=== PATIENT | female | born 1940 | race Caucasian/White ===

== ENCOUNTER 2022-02-17 14:02 | Emergency (ER) | payer MEDICARE, SELFPAY ==
--- NOTE | 2022-02-17 14:12 | CT_ITS ---
WS: [id number] CT HEAD NONCONTRAST HISTORY: stroke like symptoms TECHNIQUE: Contiguous axial imaging performed through the brain in 2.5 mm imaging. Bone and soft tiss ue windows. Sagittal and coronal reformats reviewed. All CT scans at [facility] use at least one of these dose optimization techniques: automated exposure control; mA and/or kV adjustment per pa tient size (includes targeted exams where dose is matched to clinical indication); or iterative recon struction. DLP: 808.39 mGy.cm COMPARISON: 09/15/2019 No acute intracranial hemorrhage, midline shift or mass effect. Mild atrophy and small vessel ischemic disease. There are several small lacunar infarcts in the LEFT basal ganglia. Additional small lacunar infarct in the RIGHT sarkis. Prominent perivascular space infe rior RIGHT basal ganglia. Ventricles: Mild ventriculomegaly on the basis of atrophy. Paranasal sinuses: As visualized are clear. 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 Calvarium and scalp: Skull is intact with no soft tissue edema or swelling. Moderate calcified plaque within the intracranial carotid arteries. CT/CT head wo con* [id number] IMPRESSION: 1. No acute intracranial hemorrhage or edema. 2. Small vessel ischemic disease and bilateral lacunar infarcts are stable. St able RIGHT sarkis infarct.
[2022-02-17 14:15] VITALS: BP 111/67; PULSE 81; RESP 15; TEMP 36.6; O2SAT 98
--- NOTE | 2022-02-17 14:29 | W.ED.FALL ---
HPI - Fall General: Chief Complaint: Fall Stated Complaint: Cant move legs,Pt daughter staes possible stroke Time Seen by Provider: 02/17/22 14:29 History of Present Illness: Ms. Lawson is an 81-year-old lady with history of stroke without reported residual deficits who presents to the emergency department due to difficulty walking and strokelike symptoms. She is accompanied by daughter who provide supplemental history. The patient herself does not specifically recall events and apparently over the past 6 months has had cognitive decline. Patient had 2 falls yesterday from standing while walking, unclear if there was any prodromal symptoms however daughter witnessed these falls and denies patient tripping. She reported difficulty using her legs at that time and difficulty walking afterwards. Additionally she had 1 more fall today and had been dragging her left lower extremity. In further discussion the patient did have a large stroke resulting in left sided weakness that required multiple months of inpatient rehab. She has occasionally had left lower extremity weakness in the past. Intensity symptoms is moderate. Course has persisted. No other specific changes in health, exacerbating, or alleviating factors identified. Onset (ago): day(s) Fall from: standing Fall witnessed: yes, by family Place fall occurred: home Review of Systems General: Reports: 10 or more systems reviewed and unremarkable except in HPI and below (Assisted by family) PFSH ED PFSH: Medical History Dementia Stroke Surgical History No significant past surgical history Social History Smoking and tobacco status: never smoked Household members: family Physical Exam Const: COMMON NORMALS: patient oriented x3 and alert GENERAL APPEARANCE: cooperative and well developed HENMT: COMMON NORMALS: normocephalic and atraumatic HEAD & SCALP: normocephalic and atraumatic THROAT: posterior oropharynx normal Eye: COMMON NORMALS: conjunctivae normal CONJUNCTIVA: Yes conjunctivae normal SCLERA: sclerae normal Neck/C-Spine: COMMON NORMALS: supple GENERAL: Yes trachea midline Resp: COMMON NORMALS: clear to auscultation bilaterally EFFORT & INSPECTION: Yes able to speak in complete sentences AUSCULTATION: clear to auscultation bilaterally Cardio: COMMON NORMALS: regular rate and regular rhythm RATE: regular rate RHYTHM: regular rhythm GI: COMMON NORMALS: Soft to palpation PALPATION: Yes Soft to palpation and No Tenderness to palpation present (GI) PERCUSSION: normal to percussion Extremity: GENERAL: Yes normal exam except as noted and No edema Neuro: COMMON NORMALS: patient oriented x3, CN's II-XII intact bilaterally, moves all extremities, no focal motor deficits and no sensory deficits noted SENSORIUM/ORIENTATION: Yes alert and No Orientation impaired Psych: COMMON NORMALS: mental status grossly normal and Normal thought process present THOUGHT PROCESS: Normal thought process present Course ED course: - Patient was seen and evaluated by me at bedside - Patient placed on cardiac monitors, IV access obtained - Initial evaluation notable for exam as above, no neurologic evidence appreciated. - Labs personally interpreted by me. EKGs from 1438 and 1648 reviewed and personally interpreted by me. Sinus rhythm. No STEMI. - Labs notable for no hematologic or metabolic abnormalities to explain symptoms. Urinalysis with questionable evidence of urinary tract infection. - Imaging notable for no evidence of acute stroke on head CT. No evidence of traumatic injury and cervical spine CT. Lumbar spine with degenerative changes which is worse on the left and a partial explain some of patient symptoms and clinical history is not concerning for emergent process requiring surgical intervention. - Upon serial reexamination after treatment the patient was mildly proved - Based on patient history, evaluation, and testing as interpreted the most likely cause of the patient's condition is unclear, perhaps TIA versus recrudescence in the context of mild urinary tract infection. Patient on asa, plavix, and statin for prevention. - The results of ED evaluation were discussed with the patient including possible disposition options. I discussed prescriptions and/or symptomatic cares (if applicable) including appropriate and responsible use, followup plan, and return precautions. The patient verbalized understanding and felt safe for discharge. - Patient discharged in satisfactory condition. Note: Click bubbles or prepopulated hidalgo in note writing are used for assistance with data collection and billing and are inherently more limited than narrative and other text portions of this note. Please use narrative for additional clinical history and defer to narrative/free test for any case of contradictory information. If information appears in only free text or click bubble it should be considered present or absent as reported. Please contact note telegraphic typewriter operator for clarifications of clinical information or contradictory information. MDM is a brief summary, contradictory or erroneous seeming information should be clarified and full note should be reviewed. Vital Signs: Vital signs: Vital Signs Temperature 97.8 F 02/17/22 14:15 Pulse Rate 77 02/17/22 19:24 Respiratory Rate 18 02/17/22 19:24 Blood Pressure 161/89 02/17/22 19:24 Pulse Oximetry 98 02/17/22 19:24 MDM - Fall Medical Decision Making 81 yo presenting with falls and questionable stroke like symptoms which have improved. NIHSS 0 on exam. No evidence of acute stroke. Will treat for UTI given possibility of recrudescence. Satisfactory for outpatient management with continuing aspirin, Plavix and statin. Refer to Dr De Los Santos for abnormal CT findings on L spine. Medical Records I reviewed the patient's medical records. Lab Data I reviewed the patient's lab results. : 02/17/22 14:41 02/17/22 14:[address] 02/17/22 14:12 IMPRESSION: 1. No acute intracranial hemorrhage or edema. 2. Small vessel ischemic disease and bilateral lacunar infarcts are stable. Stable RIGHT sarkis infarct. Cervical Spine CT 02/17/22 14:59 IMPRESSION: 1. No acute cervical spine fracture. 2. Mild cervical spondylosis, most significant at C4-5 and C5-6. Lumbar Spine CT 02/17/22 14:59 IMPRESSION: 1. No acute lumbar spine fracture. 2. LEFT foraminal disc protrusion without contact on the nerve root at L3-4. 3. Mild disc contacting the traversing LEFT L5 nerve root. Mild narrowing of the LEFT foramen and lateral recess at L4-5. 4. Minimal disc contact of the LEFT S1 nerve root but no displacement. Laboratory Results WBC 5.4 10^3/uL (4.0-10.0) 02/17/22 14:41 RBC 4.02 10^6/uL (4.1-5.3) L 02/17/22 14:41 Hgb 12.0 g/dL (11.5-15.3) 02/17/22 14:41 Hct 38.1 % (37.0-47.0) 02/17/22 14:41 MCV 94.8 fl (81-99) 02/17/22 14:41 MCH 29.9 pg (28.0-34.0) 02/17/22 14:41 MCHC 31.5 g/dL (30.0-36.0) 02/17/22 14:41 RDW 13.1 % (12.1-15.1) 02/17/22 14:41 Plt Count 275 10^3/cmm (130-400) 02/17/22 14:41 MPV 9.6 fL (7.4-10.4) 02/17/22 14:41 Neut % (Auto) 68.2 % 02/17/22 14:41 Lymph % (Auto) 21.3 % 02/17/22 14:41 Whitman % (Auto) 7.0 % 02/17/22 14:41 Eos % (Auto) 1.8 % 02/17/22 14:41 Baso % (Auto) 1.3 % 02/17/22 14:41 Neut # (Auto) 3.71 10^3/uL (1.8-7.7) 02/17/22 14:41 Lymph # (Auto) 1.2 10^3/uL (0.8-4.8) 02/17/22 14:41 Whitman # (Auto) 0.4 10^3/uL (0.2-0.9) 02/17/22 14:41 Eos # (Auto) 0.1 10^3/uL (0.0-0.8) 02/17/22 14:41 Baso # (Auto) 0.1 10^3/uL (0.0-0.1) 02/17/22 14:41 Nucleated RBC % (auto) 0 % 02/17/22 14:41 Nucleated RBCs # 0.0 /100WBC 02/17/22 14:41 Sodium 137 mmol/L (136-145) 02/17/22 14:41 Potassium 3.7 mmol/L (3.5-5.1) 02/17/22 14:41 Chloride 100 mmol/L (98-107) 02/17/22 14:41 Carbon Dioxide 28 mmol/L (22-29) 02/17/22 14:41 Anion Gap 12.7 (5-19) 02/17/22 14:41 BUN 17 mg/dL (8-23) 02/17/22 14:41 Creatinine 0.8 mg/dL (0.5-0.9) 02/17/22 14:41 GFR Calculation Not Reportable 02/17/22 14:41 Glucose 107 mg/dL (65-115) 02/17/22 14:41 POC Glucose 107 mg/dL (70-110) 02/17/22 14:39 Calculated Osmolality 286 mOsm/kg (285-295) 02/17/22 14:41 Calcium 9.2 mg/dL (8.5-10.5) 02/17/22 14:41 Total Bilirubin 0.2 mg/dL (0.15-1.2) 02/17/22 14:41 AST 24 U/L (0-32) 02/17/22 14:41 ALT 20 U/L (0-33) 02/17/22 14:41 Alkaline Phosphatase 69 IU/L (35-105) 02/17/22 14:41 Troponin T Baseline 10 ng/L (0-10) 02/17/22 14:41 Troponin T 120 Minute 8.14 ng/L (0-10) 02/17/22 17:16 Delta Troponin T -1.86 ABS# (0-10) L 02/17/22 17:16 NT-Pro-B Natriuret Pep 347 pg/mL (0-450) 02/17/22 14:41 Total Protein 6.8 g/dL (6.6-8.7) 02/17/22 14:41 Albumin 4.2 g/dL (3.5-5.2) 02/17/22 14:41 Globulin 2.6 g/dL (1.3-4.6) 02/17/22 14:41 TSH 1.52 uIU/mL (0.27-4.20) 02/17/22 14:41 Urine Color Yellow (Yellow) 02/17/22 15:50 Urine Appearance Clear (CLEAR) 02/17/22 15:50 Urine pH 6.5 (5-7) 02/17/22 15:50 Ur Specific Lamar 1.015 (1.005-1.030) 02/17/22 15:50 Urine Protein Neg (Negative) 02/17/22 15:50 Urine Glucose (UA) Norm (Normal) 02/17/22 15:50 Urine Ketones Negative (Negative) 02/17/22 15:50 Urine Blood Neg (Negative) 02/17/22 15:50 Urine Nitrate Negative (Negative) 02/17/22 15:50 Urine Bilirubin Neg (Negative) 02/17/22 15:50 Urine Urobilinogen Norm mg/dL (Negative) 02/17/22 15:50 Ur Leukocyte Esterase Trace (Negative) H 02/17/22 15:50 Urine RBC None /hpf (0-2) 02/17/22 15:50 Urine WBC 5-10 /hpf (0-5) H 02/17/22 15:50 Ur Squamous Epith Cells 0-4 /hpf (0-5) H 02/17/22 15:50 Amorphous Sediment 1+ /hpf 02/17/22 15:50 Urine Bacteria 1+ /hpf (NONE) H 02/17/22 15:50 Discharge Plan Discharge Patient Disposition: Home Clinical Impression: Falls, Acute UTI Condition: Stable Prescriptions: New cephalexin 500 mg capsule 500 mg PO Q6H 10 Days Qty: 40 0RF No Action atorvastatin 40 mg tablet 40 mg PO DAILY 0RF sertraline 100 mg tablet 100 mg PO DAILY 0RF clopidogrel 75 mg tablet 75 mg PO DAILY 0RF alprazolam 0.25 mg tablet 0.25 mg PO TID PRN (Reason: Anxiety) 0RF buspirone 10 mg tablet 10 mg PO TID PRN (Reason: Anxiety) 0RF aspirin 81 mg Tablet,Chewable 162 mg PO DAILY 0RF fluticasone propionate 50 mcg/actuation spray,suspension 1 spray INTRANASAL DAILY PRN (Reason: Nasal Congestion) 0RF cholecalciferol (vitamin D3) 1,250 mcg (50,000 unit) capsule 1,250 mcg PO Q7D 0RF Discharge Orders: Discharge ED (Routine); Ordered 02/17/22 Ordered By: Samy Sheriff Discharge Diet: Usual diet Discharge Activity: Resume usual activity Patient Instructions: Fall Prevention for Older Adults (ED), Urinary Tract Infection in Older Adults (ED) Activity Restrictions/Additional Instructions: Thank you for visiting the emergency department. You were seen and evaluated for falls. The exact cause of your symptoms is unclear. You were found to have a small amount of white blood cells and bacteria in your urine which will be treated with antibiotics. Please ensure that you follow-up with your scheduled neurology appointment. Please follow-up with your primary care provider. I will message case management regarding possible follow-up with Dr. De Los Santos of orthopedic spine regarding your lumbar CT results. Please return to the emergency department for worsening symptoms, recurrent falls, any new focal neurologic symptoms, or anything else that you are concerned about and feel needs emergency department evaluation. 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
--- NOTE | 2022-02-17 14:30 | ECG_ITS ---
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 Measurements Intervals [place] Rate: 74 P: 47 [place]: 145 QRS: 61 QRSD: 86 T: 75 QT: 408 QTc: 454 Interpretive Statements SINUS RHYTHM MINIMAL ST DEPRESSION [0.025+ mV ST DEPRESSION] Compared to ECG 09/15/2019 15:35:00 ST (T wave) deviation now present T-wave abnormality no longer present Electronically Signed On 02-17-2022 17:09:18 CDT by Wilfredo Menendez M.D. [email or web address] [email or web address] [email or web address] [id number]
[2022-02-17 14:35] VITALS: BP 122/75; PULSE 77; RESP 18; O2SAT 96
[2022-02-17 14:42] LABS: Glucose Point of Care 107 mg/dL (70-110)
[2022-02-17 14:53] LABS: Basophils # 0.1 10^3/uL (0.0-0.1); Basophils % 1.3 %; Eosinophils # 0.1 10^3/uL (0.0-0.8); Eosinophils % 1.8 %; Hematocrit 38.1 % (37.0-47.0); Lymphocytes # 1.2 10^3/uL (0.8-4.8); Lymphocytes % 21.3 %; Mean Corpuscular HGB Conc 31.5 g/dL (30.0-36.0); Mean Corpuscular Hemoglobin 29.9 pg (28.0-34.0); Mean Corpuscular Volume 94.8 fl (81-99); Mean Platelet Volume 9.6 fL (7.4-10.4); Monocytes # 0.4 10^3/uL (0.2-0.9); Neutrophils # 3.71 10^3/uL (1.8-7.7); Neutrophils % 68.2 %; Nucleated Red Blood Cells % 0 %; Platelet Count 275 10^3/cmm (130-400); Red Blood Count 4.02 10^6/uL (4.1-5.3); Red Cell Distribution Width 13.1 % (12.1-15.1); White Blood Count 5.4 10^3/uL (4.0-10.0)
--- NOTE | 2022-02-17 14:59 | CT_ITS ---
WS: [id number] CT CERVICAL SPINE HISTORY: fall TECHNIQUE: Contiguous 2.5 mm axial imaging performed through the entire cervical spine. Sagittal and coronal reformats also performed. All CT scans at [facility] use at least one of these dose o ptimization techniques: automated exposure control; mA and/or kV adjustment per patient size (include s targeted exams where dose is matched to clinical indication); or iterative reconstruction. DLP: 290.25 mGy.cm COMPARISON: None available. Normal posterior cervical alignment. Mild disc space narrowing and desiccation at C4-5 and C5-C6. No fractures. Craniocervical junction is aligned. Lateral masses are aligned odontoid is intact. C2-C3: Moderate RIGHT facet joint arthritis. C3-C4: Normal. C4-C5: Osteophytic ridging and facet joint arthritis. No high-grade stenosis. C5-C6: Osteophytic ridging with no high-grade stenosis. C6-C7: Normal. C7-T1: Normal. Soft tissues are normal. Lung apices are clear. CT/CT cervical spin wo con* [id number] IMPRESSION: 1. No acute cervical spine fracture. 2. Mild cervical spondylosis, most significant at C4-5 and C5-6.
--- NOTE | 2022-02-17 14:59 | CT_ITS ---
WS: [id number] CT LUMBAR SPINE, noncontrast. HISTORY: fall, pain, lower extremity weakness TECHNIQUE: Contiguous 2.5 mm axial imaging are performed. Sagittal and coronal reformats are submitte d and reviewed. All CT scans at [facility] use at least one of these dose optimization techni ques: automated exposure control; mA and/or kV adjustment per patient size (includes targeted exams w here dose is matched to clinical indication); or iterative reconstruction. IV contrast: None DLP: 1496.8 mGy.cm COMPARISON: None available. Posterior lumbar alignment is normal. No acute fracture is identified. Moderate disc space narrowing at L4-5. Mild RIGHT curvature the lumbar spine. Vacuum disc phenomenon at L2-3 and L4-5. L1-2: Mild asymmetric disc bulging. No stenosis. L2-3: Mild diffuse disc bulging with a shallow LEFT paracentral disc protrusion. No stenosis. L3-4: Mild diffuse annular disc bulging. There is a LEFT foraminal disc protrusion which is broad-bas ed without significant stenosis or nerve root contact. L4-5: Mild disc bulging. Mild osteophytic ridging. The disc slightly contacts the traversing LEFT L5 nerve root in the lateral recess. Very mild narrowing of the LEFT foramen. L5-S1: Osteophytic ridging with very slight disc contact on the LEFT S1 nerve root but no displacemen t. There are small bilateral osteophytes extending into the foramen bilaterally. Moderate calcification within the abdominal aorta. Small amount of air in the SI joints. CT/CT lumbar spine wo con* [id number] IMPRESSION: 1. No acute lumbar spine fracture. 2. LEFT foraminal disc protrusion without contact on the nerve root at L3-4. 3. Mild disc contacting the traversing LEFT L5 nerve root. Mild narrowing of t he LEFT foramen and lateral recess at L4-5. 4. Minimal disc contact of the LEFT S1 nerve root but no displacement.
[2022-02-17 15:37] LABS: Troponin(5th) Baseline 10 ng/L (0-10)
[2022-02-17 15:42] LABS: Alanine Aminotransferase 20 U/L (0-33); Albumin Level 4.2 g/dL (3.5-5.2); Alkaline Phosphatase 69 IU/L (35-105); Anion Gap 12.7 (5-19); Aspartate Amino Transferase 24 U/L (0-32); Blood Urea Nitrogen 17 mg/dL (8-23); Calcium 9.2 mg/dL (8.5-10.5); Carbon Dioxide 28 mmol/L (22-29); Chloride 100 mmol/L (98-107); Globulin 2.6 g/dL (1.3-4.6); Glucose 107 mg/dL (65-115); NT Pro B Type Natriuretic Pept 347 pg/mL (0-450); Osmolality Calculated 286 mOsm/kg (285-295); Potassium 3.7 mmol/L (3.5-5.1); Sodium 137 mmol/L (136-145); Thyroid Stimulating Hormone 1.52 uIU/mL (0.27-4.20); Total Bilirubin 0.2 mg/dL (0.15-1.2); Total Protein 6.8 g/dL (6.6-8.7)
[2022-02-17 15:52] VITALS: BP 145/79; PULSE 71; RESP 13; O2SAT 99
[2022-02-17 16:08] LABS: Add Urine Microscopic? YES; Bilirubin Urine Neg (Negative); Blood Urine Neg (Negative); Glucose Urine UA Norm (Normal); Ketones Urine Negative (Negative); Leukocyte Esterase Urine Trace (Negative); Nitrate Urine Negative (Negative); Protein Urine Neg (Negative); Specific Gravity, Urine 1.015 (1.005-1.030); Urine Appearance Clear (CLEAR); Urine Color Yellow (Yellow); Urobilinogen Urine Norm (Negative); pH Urine 6.5 (5-7)
[2022-02-17 16:09] LABS: Add Urine Culture? No; Amorphous Sediment Urine 1+ /hpf; Bacteria Urine 1+ /hpf; Squamous Epithelial Cell Urine 0-4 /hpf (0-5)
[2022-02-17 16:28] VITALS: BP 156/112; PULSE 70; RESP 17; O2SAT 97
--- NOTE | 2022-02-17 16:30 | ECG_ITS ---
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 Measurements Intervals [place] Rate: 69 P: 57 [place]: 150 QRS: 72 QRSD: 86 T: 74 QT: 428 QTc: 460 Interpretive Statements SINUS RHYTHM MINIMAL ST DEPRESSION [0.025+ mV ST DEPRESSION] Compared to ECG 02/17/2022 14:38:08 No significant changes Electronically Signed On 02-17-2022 17:19:48 CDT by Wilfredo Menendez M.D. [id number]
[2022-02-17 17:34] VITALS: BP 160/111; PULSE 71; RESP 13; O2SAT 98
[2022-02-17 17:48] LABS: Troponin 5 2HR 8.14 ng/L (0-10); Troponin 5 2HR Delta -1.86 ABS# (0-10)
[2022-02-17 19:24] VITALS: BP 161/89; PULSE 77; RESP 18; O2SAT 98
--- NOTE | 2022-02-18 12:25 | DCPLANNER ---
Addendum entered by Delia Zavala 03/31/22 20:11: Patient had a follow up appointment scheduled with ortho - patient did not attend appointment. Addendum entered by Delia Zavala 02/23/22 09:39: Patient has a follow up appointment scheduled for Wednesday, March 09, 2022 at 10:[address] De Los Santos at ortho. Clinic will call patient with appointment information. Original Note: franchise development manager had message to schedule a follow up appointment for patient with ortho. franchise development manager sent patients information to the front staff at ortho thru the workload message system. Patients information will be printed and reviewed. Clinic will call patient with appointment information.
== END 2022-02-17 19:26 | disposition home or self-care (01) ==
PROVIDERS: Emergency Provider Emergency Medicine
DX: N39.0 Urinary tract infection, site not specified (principal); R29.6 Repeated falls; F03.90 Unspecified dementia, unspecified severity, without behavioral disturbance, psychotic disturbance, mood disturbance, and anxiety; Z86.73 Personal history of transient ischemic attack (TIA), and cerebral infarction without residual deficits
CPT/HCPCS: 36416; 70450; 72125; 72131; 80053; 81001; 82962; 83880; 84443; 84484; 85025; 93005; 99284

== ENCOUNTER 2022-03-25 16:16 | Emergency (ER) | payer MEDICARE, SELFPAY ==
[2022-03-25 16:31] VITALS: BP 160/80; PULSE 83; RESP 16; TEMP 36.7; O2SAT 99
--- NOTE | 2022-03-25 17:09 | XRR_ITS ---
PROCEDURE INFORMATION: Exam: XR Right Shoulder Exam date and time: 03/25/2022 5:30 PM Age: 81 years old Clinical indication: Pain; Shoulder; Right; Additional info: Fall injury TECHNIQUE: Imaging protocol: XR Right shoulder. Views: 2 or more views. COMPARISON: CT cervical spin wo con* [id number] 02/17/2022 3:09 PM FINDINGS: Bones/joints: Normal. Soft tissues: Normal. XR/XR shoulder RT min 2V* [id number] IMPRESSION: No acute findings.
--- NOTE | 2022-03-25 17:10 | W.ED.FALL ---
HPI - Fall General: Chief Complaint: Fall Stated Complaint: Right should pain from fall Time Seen by Provider: 03/25/22 17:09 History of Present Illness: 81-year-old female with dementia comes in today for evaluation of injury to the right shoulder. Patient had fallen on Tuesday evening. Patient has a history of dementia, CVA, and hypertension. Patient mainly takes medications for her dementia and cholesterol. 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 Patient is cooperative and pleasant at this time. Patient has a significant bruise to the right upper arm. Patient moves arm but is guarded with movement. Associated symptoms-after fall: Denies chest pain Review of Systems General: Reports: 10 or more systems reviewed and unremarkable except in HPI and below Card: Denies: chest pain Resp: Denies: dyspnea Musc: Reports: extremity pain [facility] ED PFSH: Medical History Dementia Stroke Surgical History No significant past surgical history Social History Smoking and tobacco status: never smoked Household members: family Physical Exam Const: COMMON NORMALS: alert HENMT: COMMON NORMALS: atraumatic HEAD & SCALP: atraumatic Neck/C-Spine: COMMON NORMALS: full ROM Chest: COMMONS NORMALS: normal palpation of entire chest wall Resp: COMMON NORMALS: normal respiratory effort Cardio: COMMON NORMALS: regular rate RATE: regular rate Back/Pelvis: COMMON NORMALS: thoracic and lumbar spine normal to inspection Extremity: NARRATIVE EXTREMITY EXAM: Patient is ambulatory with unsteady normal gait. Patient has a history of CVA with some weakness to the left extremity RIGHT UPPER EXTREMITY: Yes upper arm (Large ecchymotic area, tenderness to the upper arm) Neuro: SENSORIUM/ORIENTATION: Yes alert Skin: COMMON NORMALS: no rashes or lesions noted GENERAL SKIN EXAM: no rashes or lesions noted Course Vital Signs: Vital signs: Vital Signs Temperature 98.1 F 03/25/22 16:31 Pulse Rate 83 03/25/22 16:31 Respiratory Rate 16 03/25/22 16:31 Blood Pressure 160/80 03/25/22 16:31 Pulse Oximetry 99 03/25/22 16:31 MDM - Fall Medical Decision Making 81-year-old female was brought in today due to concerns of significant bruising and tenderness to the right upper arm. 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 Since then patient had some bruising and tenderness to the right upper arm. On exam patient has some mild dementia. Patient uses a walker. Patient has some general weakness in the lower extremities. On exam patient is cooperative and responds appropriate to questions. Daughter reports that she gets worse at night. Vital signs are normal. Tenderness and significant bruising is noted to the right upper arm. Differential diagnosis includes humeral fracture, intracranial bleeding, pelvic fracture. X-ray of the pelvis was negative for fracture or injury. X-ray of the shoulder was negative for fracture or dislocation. CT of the head noted no intracranial bleeding. Reviewed exam with patient's family and patient who reported understanding of care plan to use Tylenol as needed for pain and return to the ER for any new concerns. Lab Data Radiology Impressions Shoulder X-Ray 03/25/22 17:09 IMPRESSION: No acute findings. Head CT 03/25/22 17:21 IMPRESSION: Negative for intracranial injury. Pelvis X-Ray 03/25/22 17:21 IMPRESSION: No acute findings. Discharge Plan Discharge Patient Disposition: Home Clinical Impression: Head injury, Hip pain Fall Qualifiers: Encounter type: initial encounter Qualified Code(s): W19.XXXA - Unspecified fall, initial encounter Contusion of right shoulder Qualifiers: Encounter type: initial encounter Qualified Code(s): S40.011A - Contusion of right shoulder, initial encounter Condition: Stable Prescriptions: No Action atorvastatin 40 mg tablet 40 mg PO DAILY 0RF sertraline 100 mg tablet 100 mg PO DAILY 0RF clopidogrel 75 mg tablet 75 mg PO DAILY 0RF alprazolam 0.25 mg tablet 0.25 mg PO TID PRN (Reason: Anxiety) 0RF buspirone 10 mg tablet 10 mg PO TID PRN (Reason: Anxiety) 0RF aspirin 81 mg Tablet,Chewable 162 mg PO DAILY 0RF fluticasone propionate 50 mcg/actuation spray,suspension 1 spray INTRANASAL DAILY PRN (Reason: Nasal Congestion) 0RF cholecalciferol (vitamin D3) 1,250 mcg (50,000 unit) capsule 1,250 mcg PO Q7D 0RF Discharge Orders: Discharge ED (Routine); Ordered 03/25/22 Ordered By: Francisco Burnham Discharge Diet: Usual diet Discharge Activity: Increase activity as tolerated Patient Instructions: Opioid Safety Activity Restrictions/Additional Instructions: Activity as tolerated. Acetaminophen for pain. Follow-up with primary care for further instruction. Coding Level of Care Code ED Mechanic Recovery for [employer] Exam Comprehensive
--- NOTE | 2022-03-25 17:21 | CTR_ITS ---
PROCEDURE INFORMATION: Exam: CT Head Without Contrast Exam date and time: 03/25/2022 5:43 PM Age: 81 years old Clinical indication: Injury or trauma; Eye; Injury date: 03/25/2022; Injury details: Bilateral brow abrasions, S/P fall today TECHNIQUE: Imaging protocol: Computed tomography of the head without contrast. Radiation optimization: All CT scans at this facility use at least one of these dose optimization techniques: automated exposure control; mA and/or kV adjustment per patient size (includes targeted exams where dose is matched to clinical indication); or iterative reconstruction. COMPARISON: CT head wo con* [id number] 01/29/2019 5:15 PM RADIATION DOSE METRICS: Total DLP (mGy-cm): 751.85 FINDINGS: Brain: There is marked cerebral atrophy. There is marked diffuse heterogeneity of the white matter attenuation, consistent with severe chronic white matter ischemic changes. Negative for intracranial hemorrhage. No intracranial mass. No midline shift of brain. Taylor matter and white matter interfaces are preserved. No cerebral sulcal effacement. Cerebral ventricles: No ventriculomegaly. Paranasal sinuses: Visualized sinuses are unremarkable. No fluid levels. Mastoid air cells: Visualized mastoid air cells are well aerated. Orbital cavities: Symmetry of orbits. Bones/joints: Unremarkable. No acute fracture. Soft tissues: Unremarkable. CT/CT head wo con* [id number] IMPRESSION: Negative for intracranial injury.
--- NOTE | 2022-03-25 17:21 | XRR_ITS ---
PROCEDURE INFORMATION: Exam: XR Pelvis Exam date and time: 03/25/2022 5:30 PM Age: 81 years old Clinical indication: Pelvic pain; Additional info: Fall TECHNIQUE: Imaging protocol: XR pelvis. Views: 1 or 2 view. COMPARISON: CR Hip 2-3v RIGHT wwo Pelv* [id number] 02/16/2016 7:31 AM FINDINGS: Bones/joints: Unremarkable. No acute fracture. Soft tissues: Unremarkable. XR/XR pelvis 1-2V* [id number] IMPRESSION: No acute findings.
== END 2022-03-25 18:19 | disposition home or self-care (01) ==
PROVIDERS: Emergency Provider Nurse Practitioner Family
DX: S40.011A Contusion of right shoulder, initial encounter (principal); S09.90XA Unspecified injury of head, initial encounter; W19.XXXA Unspecified fall, initial encounter; F03.90 Unspecified dementia, unspecified severity, without behavioral disturbance, psychotic disturbance, mood disturbance, and anxiety; I69.354 Hemiplegia and hemiparesis following cerebral infarction affecting left non-dominant side; I10 Essential (primary) hypertension
CPT/HCPCS: 70450; 72170; 73030; 99283

== ENCOUNTER 2022-04-11 20:57 | Emergency (ER) | payer MEDICARE, SELFPAY ==
[2022-04-11 20:59] VITALS: BMI 16.9
[2022-04-11 21:02] VITALS: BP 176/98; PULSE 74; RESP 16; TEMP 36.7; O2SAT 97
--- NOTE | 2022-04-11 21:03 | W.ED.WEAKNES ---
HPI - Weakness General: Chief complaint: Weakness Stated complaint: confusion, low appetite pain n/v Time Seen by Provider: 04/11/22 21:02 History of Present Illness: Ms. Lawson is an 81-year-old lady with, per chart review stroke and dementia, who presents to the emergency department due to weakness, mild confusion which may be at baseline, and questionable abdominal pain. Patient herself is vague on details and specifics. Apparently she has intermittent epigastric pain though is unsure of how long this has been going on. Mostly occurs at night. Denies vomiting or nausea or associated changes in bowel movements. Intensity is mild to moderate. Apparently family was concerned that she is worsening generalized weakness, confusion, difficulty walking and lack of appetite for the past couple months though worse over the past few weeks. Patient is unsure of any other symptoms. No other specific changes in health, exacerbating, or alleviating factors identified. Onset (ago): week(s) Duration: progressively worsening Review of Systems General: Reports: 10 or more systems reviewed and unremarkable except in HPI and below PFSH ED PFSH: Medical History Dementia Stroke Surgical History No significant past surgical history Social History Smoking and tobacco status: never smoked Household members: family Physical Exam Const: COMMON NORMALS: alert GENERAL APPEARANCE: cooperative and well developed HENMT: COMMON NORMALS: normocephalic and atraumatic HEAD & SCALP: normocephalic and atraumatic Eye: COMMON NORMALS: conjunctivae normal CONJUNCTIVA: Yes conjunctivae normal SCLERA: sclerae normal Neck/C-Spine: COMMON NORMALS: supple GENERAL: Yes trachea midline Resp: COMMON NORMALS: normal respiratory effort EFFORT & INSPECTION: Yes able to speak in complete sentences Cardio: COMMON NORMALS: regular rate and regular rhythm RATE: regular rate RHYTHM: regular rhythm GI: COMMON NORMALS: Soft to palpation PALPATION: Yes Soft to palpation, Yes Tenderness to palpation present (GI), No Guarding due to palpation present (GI) and No Rigid due to palpation PERCUSSION: normal to percussion Extremity: GENERAL: Yes normal exam except as noted and No edema Neuro: COMMON NORMALS: moves all extremities SENSORIUM/ORIENTATION: Yes alert and No Orientation impaired Course ED course: - Patient was seen and evaluated by me at bedside - Patient placed on cardiac monitors, IV access obtained - Initial evaluation notable for exam as above - Labs and xrays personally interpreted by me. EKG notable for sinus rhythm with nonspecific ST segment abnormalities. No STEMI. -Fluids given - Labs notable for no leukocytosis, normal hemoglobin. Metabolic panel with mild evidence of dehydration, transaminitis of uncertain etiology. No evidence of urinary tract infection. - Imaging notable for no lobar consolidation or pneumothorax on chest x-ray. CT head negative for acute intracranial pathology. CT abdomen pelvis without acute abnormality to explain symptoms, incidentally gallbladder appears somewhat prominent. Given transaminitis I do feel that additional evaluation with ultrasound is warranted. Ultrasound negative for cholecystitis or other acute pathology related to CT abnormality. - Upon serial reexamination after treatment the patient was improved - Based on patient history, evaluation, and testing as interpreted the most likely cause of the patient's condition is unclear, mild dehydration was noted - The results of ED evaluation were discussed with the patient including prescriptions and/or symptomatic cares (if applicable) including appropriate and responsible use, followup plan, and return precautions. The patient verbalized understanding and felt safe for discharge. - Patient discharged in satisfactory condition. Note: Click bubbles or prepopulated hidalgo in note writing are used for assistance with data collection and billing and are inherently more limited than narrative and other text portions of this note. Please use narrative for additional clinical history and defer to narrative/free test for any case of contradictory information. If information appears in only free text or click bubble it should be considered present or absent as reported. Please contact note marketing copywriter for clarifications of clinical information or contradictory information. MDM is a brief summary, contradictory or erroneous seeming information should be clarified and full note should be reviewed. Vital Signs: Vital signs: Vital Signs Temperature 98.0 F 04/12/22 02:12 Pulse Rate 84 04/12/22 02:12 Respiratory Rate 16 04/12/22 02:12 Blood Pressure 189/97 04/12/22 02:12 Pulse Oximetry 99 04/12/22 02:12 MDM - Weakness Medical Decision Making 81-year-old lady with history of dementia presenting to the emergency department for concern over possibly abdominal pain and weakness. Patient found to have mild dehydration. No other acute pathology identified. Satisfactory for outpatient management with strict return precautions. Medical Records I reviewed the patient's medical records. Lab Data I reviewed the patient's lab results. : 04/11/22 21:30 04/11/22 21: Radiology Impressions Chest X-Ray 04/11/22 21:08 IMPRESSION: No acute cardiopulmonary abnormality. Head CT 04/11/22 21:08 IMPRESSION: No acute intracranial abnormality. Abdomen/Pelvis CT 04/11/22 22:13 IMPRESSION: 1. Negative for acute inflammatory process or mass lesion. 2. Bibasilar atelectasis versus infiltrate. 3. Coronary artery atherosclerotic calcifications. 4. Gallbladder is somewhat prominent, ultrasound could further evaluate this. 5. Diverticulosis without diverticulitis. Abdomen Ultrasound 04/11/22 23:00 IMPRESSION: No acute findings. Laboratory Results WBC 4.7 10^3/uL (4.0-10.0) 04/11/22: RBC 4.08 10^6/uL (4.1-5.3) L 04/11/22: Hgb 12.0 g/dL (11.5-15.3) 04/11/22: Hct 36.6 % (37.0-47.0) L 04/11/22: MCV 89.7 fl (81-99) 04/11/22: MCH 29.4 pg (28.0-34.0) 04/11/22 21: MCHC 32.8 g/dL (30.0-36.0) 04/11/22: RDW 13.2 % (12.1-15.1) 04/11/22: Plt Count 259 10^3/cmm (130-400) 04/11/22: MPV 9.5 fL (7.4-10.4) 04/11/22: Neut % (Auto) 73.1 % 04/11/22: Lymph % (Auto) 15.6 % 04/11/22 21: [place] % (Auto) 9.6 % 04/11/22: Eos % (Auto) 0.4 % 04/11/22: Baso % (Auto) 1.1 % 04/11/22: Neut # (Auto) 3.42 10^3/uL (1.8-7.7) 04/11/22 21:30 Lymph # (Auto) 0.7 10^3/uL (0.8-4.8) L 04/11/22 21:30 [place] # (Auto) 0.5 10^3/uL (0.2-0.9) 04/11/22 21:30 Eos # (Auto) 0.0 10^3/uL (0.0-0.8) 04/11/22 21: Baso # (Auto) 0.1 10^3/uL (0.0-0.1) 04/11/22 21:30 Nucleated RBC % (auto) 0 % 04/11/22: Nucleated RBCs # 0.0 /100WBC 04/11/22 21: Sodium 135 mmol/L (136-145) L 04/11/22 21: Potassium 3.4 mmol/L (3.5-5.1) L 04/11/22: Chloride 95 mmol/L (98-107) L 04/11/22: Carbon Dioxide 22 mmol/L (22-29) 04/11/22 21: Anion Gap 21.4 (5-19) H 04/11/22 21:30 BUN 14 mg/dL (8-23) 04/11/22 21: Creatinine 0.8 mg/dL (0.5-0.9) 04/11/22 21:30 GFR Calculation Not Reportable 04/11/22: Glucose 93 mg/dL (65-115) 04/11/22: Calculated Osmolality 280 mOsm/kg (285-295) L 04/11/22: Lactate 0.8 mmol/L (0.5-2.2) 04/11/22 21: Calcium 8.6 mg/dL (8.5-10.5) 04/11/22 21: Total Bilirubin 0.4 mg/dL (0.15-1.2) 04/11/22 21:30 AST 178 U/L (0-32) H 04/11/22 21:30 ALT 139 U/L (0-33) H 04/11/22 21:30 Alkaline Phosphatase 64 IU/L (35-105) 04/11/22 21:30 Troponin T Baseline 11 ng/L (0-10) H 04/11/22 21:30 Troponin T 120 Minute 11.65 ng/L (0-10) H 04/11/22 23:55 Delta Troponin T 0.65 ABS# (0-10) 04/11/22 23:55 Total Protein 6.8 g/dL (6.6-8.7) 04/11/22 21:30 Albumin 4.0 g/dL (3.5-5.2) 04/11/22 21: Globulin 2.8 g/dL (1.3-4.6) 04/11/22 21:30 Lipase 32 U/L (13-60) 04/11/22 21:30 TSH 3.40 uIU/mL (0.27-4.20) 04/11/22 21:30 Urine Color Yellow (Yellow) 04/11/22 22:54 Urine Appearance Clear (CLEAR) 04/11/22 22:54 Urine pH 5 (5-7) 04/11/22 22:54 Ur Specific [place] 1.015 (1.005-1.030) 04/11/22 22:54 Urine Protein Neg (Negative) 04/11/22 22:54 Urine Glucose (UA) Norm (Normal) 04/11/22 22:54 Urine Ketones 2+ (Negative) H 04/11/22 22:54 Urine Blood 2+ (Negative) H 04/11/22 22:54 Urine Nitrate Negative (Negative) 04/11/22 22:54 Urine Bilirubin Neg (Negative) 04/11/22 22:54 Urine Urobilinogen Norm mg/dL (Negative) 04/11/22 22:54 Ur Leukocyte Esterase Negative (Negative) 04/11/22 22:54 Urine RBC 10-15 /hpf (0-2) H 04/11/22 22:54 Urine WBC 0-4 /hpf (0-5) H 04/11/22 22:54 Ur Squamous Epith Cells 0-4 /hpf (0-5) H 04/11/22 22:54 Amorphous Sediment Not Reportable 04/11/22 22:54 Urine Bacteria Trace /hpf (NONE) 04/11/22 22:54 Discharge Plan Discharge Patient Disposition: Home Clinical Impression: Weakness, Dehydration, Confusion, Transaminitis, Hematuria Condition: Stable Prescriptions: No Action atorvastatin 40 mg tablet 40 mg PO DAILY 0RF sertraline 100 mg tablet 100 mg PO DAILY 0RF clopidogrel 75 mg tablet 75 mg PO DAILY 0RF alprazolam 0.25 mg tablet 0.25 mg PO TID PRN (Reason: Anxiety) 0RF buspirone 10 mg tablet 10 mg PO TID PRN (Reason: Anxiety) 0RF aspirin 81 mg Tablet,Chewable 162 mg PO DAILY 0RF fluticasone propionate 50 mcg/actuation spray,suspension 1 spray INTRANASAL DAILY PRN (Reason: Nasal Congestion) 0RF cholecalciferol (vitamin D3) 1,250 mcg (50,000 unit) capsule 1,250 mcg PO Q7D 0RF Discharge Orders: Discharge ED (Routine); Ordered 04/12/22 Ordered By: Samy Sheriff Discharge Diet: Usual diet Discharge Activity: Increase activity as tolerated Patient Instructions: Dehydration (ED), Hematuria (ED), Weakness (ED) Activity Restrictions/Additional Instructions: Thank you for visiting the emergency department. You were seen and evaluated for generalized weakness, confusion, and abdominal discomfort. The exact cause of your symptoms is unclear. As discussed, you do have mild elevation in your liver enzymes which requires further outpatient evaluation. Additionally you are mildly dehydrated. Please follow-up with your primary care provider. Please return to the emergency department for worsening symptoms or anything else that you are concerned about a feel needs emergency department evaluation. 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
--- NOTE | 2022-04-11 21:08 | CTR_ITS ---
PROCEDURE INFORMATION: Exam: CT Head Without Contrast Exam date and time: 04/11/2022 9:21 PM Age: 81 years old Clinical indication: Patient HX: N/v confusion; Additional info: AMS TECHNIQUE: Imaging protocol: Computed tomography of the head without contrast. Radiation optimization: All CT scans at this facility use at least one of these dose optimization techniques: automated exposure control; mA and/or kV adjustment per patient size (includes targeted exams where dose is matched to clinical indication); or iterative reconstruction. COMPARISON: CT head wo con* [id number] 03/25/2022 5:43 PM RADIATION DOSE METRICS: Total DLP (mGy-cm): 784.15 FINDINGS: Brain: Small chronic infarctions are present in the sarkis and left cerebellar hemisphere. Mild atrophy and mild white matter chronic microvascular changes are noted. No hemorrhage or evidence of acute infarction. Cerebral ventricles: No ventriculomegaly. Paranasal sinuses: Visualized sinuses are unremarkable. No fluid levels. Mastoid air cells: Left mastoid sclerosis is noted. The right mastoid air cells are well aerated. Bones/joints: Unremarkable. No acute fracture. Soft tissues: Unremarkable. CT/CT head wo con* [id number] IMPRESSION: No acute intracranial abnormality.
--- NOTE | 2022-04-11 21:08 | XRR_ITS ---
PROCEDURE INFORMATION: Exam: XR Chest Exam date and time: 04/11/2022 9:27 PM Age: 81 years old Clinical indication: Other: N/v loss of weight; Additional info: Weakness, confusion TECHNIQUE: Imaging protocol: XR of the chest. Views: 1 view. COMPARISON: CR Chest 1 [place] [id number] 09/15/2019 3:35 PM FINDINGS: Lungs: A calcified granuloma is again seen in the left upper lobe. The lungs are otherwise clear. Pleural spaces: Unremarkable. No pleural effusion. No pneumothorax. Heart/Mediastinum: The heart is normal in size. Left hilar calcified lymph nodes are again seen. Aortic calcifications remain evident. Bones/joints: Unremarkable. XR/XR chest 1V portable [id number] IMPRESSION: No acute cardiopulmonary abnormality.
[2022-04-11] MEDS: sodium chloride 0.9% 1,000 ML 999 ML IV (21:32)
[2022-04-11 21:37] LABS: Basophils # 0.1 10^3/uL (0.0-0.1); Basophils % 1.1 %; Eosinophils % 0.4 %; Hematocrit 36.6 % (37.0-47.0); Lymphocytes # 0.7 10^3/uL (0.8-4.8); Lymphocytes % 15.6 %; Mean Corpuscular HGB Conc 32.8 g/dL (30.0-36.0); Mean Corpuscular Hemoglobin 29.4 pg (28.0-34.0); Mean Corpuscular Volume 89.7 fl (81-99); Mean Platelet Volume 9.5 fL (7.4-10.4); Monocytes # 0.5 10^3/uL (0.2-0.9); Monocytes % 9.6 %; Neutrophils # 3.42 10^3/uL (1.8-7.7); Neutrophils % 73.1 %; Nucleated Red Blood Cells % 0 %; Platelet Count 259 10^3/cmm (130-400); Red Blood Count 4.08 10^6/uL (4.1-5.3); Red Cell Distribution Width 13.2 % (12.1-15.1); White Blood Count 4.7 10^3/uL (4.0-10.0)
[2022-04-11 22:00] LABS: Lactate (Lactic Acid level) 0.8 mmol/L (0.5-2.2)
[2022-04-11 22:09] LABS: Alanine Aminotransferase 139 U/L (0-33); Alkaline Phosphatase 64 IU/L (35-105); Anion Gap 21.4 (5-19); Aspartate Amino Transferase 178 U/L (0-32); Blood Urea Nitrogen 14 mg/dL (8-23); Calcium 8.6 mg/dL (8.5-10.5); Carbon Dioxide 22 mmol/L (22-29); Chloride 95 mmol/L (98-107); Globulin 2.8 g/dL (1.3-4.6); Glucose 93 mg/dL (65-115); Lipase 32 U/L (13-60); Osmolality Calculated 280 mOsm/kg (285-295); Potassium 3.4 mmol/L (3.5-5.1); Sodium 135 mmol/L (136-145); Total Bilirubin 0.4 mg/dL (0.15-1.2); Total Protein 6.8 g/dL (6.6-8.7)
--- NOTE | 2022-04-11 22:13 | CTR_ITS ---
PROCEDURE INFORMATION: Exam: CT Abdomen And Pelvis Without Contrast Exam date and time: 04/11/2022 10:28 PM Age: 81 years old Clinical indication: Nausea and vomiting and other: Wt loss; Additional info: Epigastric pain, poor po intake TECHNIQUE: Imaging protocol: Computed tomography of the abdomen and pelvis without contrast. Radiation optimization: All CT scans at this facility use at least one of these dose optimization techniques: automated exposure control; mA and/or kV adjustment per patient size (includes targeted exams where dose is matched to clinical indication); or iterative reconstruction. COMPARISON: CR (PELVIS, ) 03/25/2022 5:30 PM RADIATION DOSE METRICS: Total DLP (mGy-cm): 566.01 FINDINGS: Lungs: Bibasilar atelectasis versus infiltrate. Heart: Coronary artery atherosclerotic calcifications. Liver: Normal. No mass. Gallbladder and bile ducts: Gallbladder is somewhat prominent, ultrasound could further evaluate this. Pancreas: Normal. No ductal dilation. Spleen: Normal. No splenomegaly. Adrenal glands: Normal. No mass. Kidneys and ureters: Normal. No hydronephrosis. Stomach and bowel: Diverticulosis without diverticulitis. Appendix: No evidence of appendicitis. Intraperitoneal space: Unremarkable. No free air. No significant fluid collection. Vasculature: Unremarkable. No abdominal aortic aneurysm. Lymph nodes: Unremarkable. No enlarged lymph nodes. Urinary bladder: Unremarkable as visualized. Reproductive: Unremarkable as visualized. Bones/joints: Unremarkable. No acute fracture. Soft tissues: Unremarkable. CT/CT abdomen pelvis wo con [id number] IMPRESSION: 1. Negative for acute inflammatory process or mass lesion. 2. Bibasilar atelectasis versus infiltrate. 3. Coronary artery atherosclerotic calcifications. 4. Gallbladder is somewhat prominent, ultrasound could further evaluate this. 5. Diverticulosis without diverticulitis.
--- NOTE | 2022-04-11 22:40 | ECG_ITS ---
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 Measurements Intervals [place] Rate: 72 P: 63 NV: 142 QRS: 70 QRSD: 84 T: 61 QT: 477 QTc: 523 Interpretive Statements SINUS RHYTHM PROLONGED QT INTERVAL Compared to ECG 02/17/2022 16:48:11 Prolonged QT interval now present ST (T wave) deviation no longer present Electronically Signed On 04-12-2022 8:01:45 CDT by Shane Peña M.D. [id number]
--- NOTE | 2022-04-11 23:00 | USR_ITS ---
PROCEDURE INFORMATION: Exam: US Abdomen, Limited; Right Upper Quadrant Exam date and time: 04/11/2022 11:22 PM Age: 81 years old Clinical indication: Abnormal findings; Abnormal lab test; Other: Transaminases; Additional info: Ruq/biliary, abnormal CT appearance, transaminitis TECHNIQUE: Imaging protocol: US abdomen. Real time ultrasound with image documentation. Limited exam focused on the right upper quadrant. COMPARISON: CT abdomen pelvis wo con [id number] 04/11/2022 10:28 PM FINDINGS: Liver: Normal. No masses. Gallbladder: Normal. No gallstones. There is no gallbladder wall thickening. Biliary ducts: Normal. No stones. No dilation. Pancreas: Visualized pancreas is unremarkable. Right kidney: Normal. No mass. No hydronephrosis. US/US abdomen limited [id number] IMPRESSION: No acute findings.
[2022-04-11 23:02] LABS: Troponin(5th) Baseline 11 ng/L (0-10)
[2022-04-11 23:32] LABS: Add Urine Microscopic? YES; Bilirubin Urine Neg (Negative); Blood Urine 2+ (Negative); Glucose Urine UA Norm (Normal); Ketones Urine 2+ (Negative); Leukocyte Esterase Urine Negative (Negative); Nitrate Urine Negative (Negative); Protein Urine Neg (Negative); Specific Gravity, Urine 1.015 (1.005-1.030); Urine Appearance Clear (CLEAR); Urine Color Yellow (Yellow); Urobilinogen Urine Norm (Negative); pH Urine 5 (5-7)
[2022-04-11 23:33] LABS: Add Urine Culture? Yes; Bacteria Urine TRACE /hpf; Squamous Epithelial Cell Urine 0-4 /hpf (0-5); WBC Urine 0-4 /hpf (0-5)
[2022-04-12 00:20] LABS: Troponin 5 2HR 11.65 ng/L (0-10)
[2022-04-12 00:21] LABS: Troponin 5 2HR Delta 0.65 ABS# (0-10)
--- NOTE | 2022-04-12 00:40 | ECG_ITS ---
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 Measurements Intervals [place] Rate: 74 P: 68 DE: 134 QRS: 70 QRSD: 83 T: 249 QT: 409 QTc: 456 Interpretive Statements SINUS RHYTHM ST DEVIATION AND MODERATE T-WAVE ABNORMALITY, CONSIDER INFERIOR ISCHEMIA [-0.1+ mV T-WAVE IN II/aVF] Compared to ECG 04/11/2022 23:49:18 T-wave abnormality now present Possible ischemia now present Prolonged QT interval no longer present Electronically Signed On 04-12-2022 8:05:47 CDT by Shane Peña M.D. [id number]
[2022-04-12 02:12] VITALS: BP 189/97; PULSE 84; RESP 16; TEMP 36.7; O2SAT 99
== END 2022-04-12 02:15 | disposition home or self-care (01) ==
PROVIDERS: Emergency Provider Emergency Medicine
DX: R53.1 Weakness (principal); E86.0 Dehydration; R41.0 Disorientation, unspecified; R10.9 Unspecified abdominal pain; R74.01 Elevation of levels of liver transaminase levels; R31.9 Hematuria, unspecified; F03.90 Unspecified dementia, unspecified severity, without behavioral disturbance, psychotic disturbance, mood disturbance, and anxiety; Z79.82 Long term (current) use of aspirin; Z79.02 Long term (current) use of antithrombotics/antiplatelets; Z86.73 Personal history of transient ischemic attack (TIA), and cerebral infarction without residual deficits
CPT/HCPCS: 70450; 71045; 74176; 76705; 80053; 81001; 83605; 83690; 84443; 84484; 85025; 87086; 93005; 96360; 99285; J7030